=== PATIENT | female | born 1980 | race African-American/Black ===

== ENCOUNTER 2019-04-27 14:04 | Emergency (ER) | payer OTHER ==
--- NOTE | 2019-04-27 16:09 | ER Document Report ---
ED Medical Screen (RME) - General Chief Complaint: Abdominal Pain Stated Complaint: ABDOMINAL PAIN Time Seen by Provider: 04/27/19 16:02 Mode of Arrival: Medic Information source: Patient Notes: 39-year-old female presented to ED for complaint of right lower quadrant pain since yesterday with nausea. She came to the emergency via EMS. They states that she had intermittent blood in her stool they gave her 4 mg of Zofran and 50 mcg of fentanyl in the while in route. Patient is having right lower quadrant/right pelvic pain since yesterday. She states she has had some nausea but no vomiting. She has no pain or discomfort with urination. She has had a laparoscopy. She states she does have a history of pretension and hyperthyroid but is quit taking the medications for both. 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 Patient states she has had some blood in her stools for couple weeks but does not have any liquid stools. Patient is alert oriented respirations regular and unlabored speaking in full sentences walks with a even steady gait. I have greeted and performed a rapid initial assessment of this patient. A comprehensive ED assessment and evaluation of the patient, analysis of test results and completion of medical decision making process will be conducted by an additional ED providers. Dictation of this chart was performed using voice recognition software; therefore, there may be some unintended grammatical errors. - Related Data Allergies/Adverse Reactions: No Known Allergies Allergy (Verified 04/27/19 16:00) Physical Exam - Vital signs Vitals: Temp Pulse Resp BP Pulse Ox 98.1 F 103 H 20 165/106 H 99 04/27/19 14:08 04/27/19 14:08 04/27/19 14:08 04/27/19 14:08 04/27/19 14:08 Course - Vital Signs Vital signs: Temp Pulse Resp BP Pulse Ox 98.1 F 103 H 20 165/106 H 99 04/27/19 14:08 04/27/19 14:08 04/27/19 14:08 04/27/19 14:08 04/27/19 14:08
[2019-04-27 16:42] LABS: ABSOLUTE EOSINOPHILS # (AUTO) 0.1 10^3/uL (0.0-0.6); ABSOLUTE LYMPHOCYTES (AUTO) 1.9 10^3/uL (0.5-4.7); ABSOLUTE MONOCYTES (AUTO) 0.4 10^3/uL (0.1-1.4); ABSOLUTE NEUT (AUTO) 3.8 10^3/uL (1.7-8.2); BASOPHILS % (AUTO) 0.4 % (0-2); HEMATOCRIT 40.3 % (36.0-47.0); HEMOGLOBIN 13.5 g/dL (12.0-15.5); LYMPHOCYTES % (AUTO) 30.1 % (13-45); MEAN CORPUSCULAR HEMOGLOBIN 28.2 pg (27.0-33.4); MEAN CORPUSCULAR HGB CONC 33.4 g/dL (32.0-36.0); MEAN CORPUSCULAR VOLUME 84 fl (80-97); MONOCYTES % (AUTO) 6.7 % (3-13); PLATELET COUNT 235 10^3/uL (150-450); RED BLOOD COUNT 4.78 10^6/uL (3.72-5.28); RED CELL DISTRIBUTION WIDTH 13.2 % (11.5-14.0); SEGMENTED NEUTROPHILS % (AUTO) 60.8 % (42-78); TOTAL CELLS COUNTED % (AUTO) 100 %; WHITE BLOOD COUNT 6.3 10^3/uL (4.0-10.5)
[2019-04-27 17:06] LABS: ALANINE AMINOTRANSFERASE 20 U/L (9-52); ALBUMIN 4.1 g/dL (3.5-5.0); ALKALINE PHOSPHATASE 42 U/L (38-126); ANION GAP 8 (5-19); ASPARTATE AMINO TRANSFERASE 21 U/L (14-36); BILIRUBIN,DIRECT 0.2 mg/dL (0.0-0.4); BILIRUBIN,TOTAL 0.3 mg/dL (0.2-1.3); BLOOD UREA NITROGEN 12 mg/dL (7-20); CALCIUM 9.1 mg/dL (8.4-10.2); CARBON DIOXIDE 26 mmol/L (22-30); CHLORIDE 105 mmol/L (98-107); GLUCOSE 97 mg/dL (75-110); POTASSIUM 3.7 mmol/L (3.6-5.0); TOTAL PROTEIN 7.3 g/dL (6.3-8.2)
[2019-04-27 17:07] LABS: APPEARANCE,URINE CLEAR; BILIRUBIN,URINE NEGATIVE (NEGATIVE); COLOR,URINE YELLOW; GLUCOSE, URINE NEGATIVE (NEGATIVE); KETONES,URINE NEGATIVE (NEGATIVE); LEUKOCYTE ESTERASE,URINE NEGATIVE (NEGATIVE); NITRITE,URINE NEGATIVE (NEGATIVE); PROTEIN,URINE 30 mg/dL (NEGATIVE); URINE SPECIFIC GRAVITY 1.021
--- NOTE | 2019-04-27 17:20 | RADIOLOGY REPORT (SQ) ---
EXAM DESCRIPTION: U/S NON-OB PELVIS TV W/O DOP COMPLETED DATE/TIME: 04/27/2019 4:56 pm REASON FOR STUDY: Right lower quadrant abdominal/pelvic pain COMPARISON: None. TECHNIQUE: Dynamic and static grayscale images acquired of the pelvis via transvaginal approach and recorded on PACS. Additional selected color Doppler and spectral images recorded. LIMITATIONS: None. FINDINGS: UTERUS: Contour normal. No mass. ENDOMETRIAL STRIPE: No focal or generalized thickening. No masses. CERVIX: No nabothian cysts. RIGHT OVARY AND DOPPLER: Normal size. No worrisome masses. Normal arterial vascular flow without evid ence for torsion. LEFT OVARY AND DOPPLER: Normal size. No worrisome masses. Normal arterial vascular flow without evide nce for torsion. FREE FLUID: None noted. OTHER: No other significant finding. MEASUREMENTS: UTERUS: 7.8 cm ENDOMETRIAL STRIPE: 2.1 mm RIGHT OVARY: 2.4 cm LEFT OVARY: 2.2 cm IMPRESSION: NORMAL TRANSVAGINAL PELVIC ULTRASOUND. TECHNICAL DOCUMENTATION: JOB ID: [id number] [employer]- All Rights Reserved Rev-02/17 Reading location - IP/workstation name: [email or web address]
--- NOTE | 2019-04-27 17:21 | RADIOLOGY REPORT (SQ) ---
EXAM DESCRIPTION: U/S ABDOMEN LIMITED W/O DOP COMPLETED DATE/TIME: 04/27/2019 5:00 pm REASON FOR STUDY: Right lower quadrant abdominal/pelvic pain COMPARISON: None. TECHNIQUE: Static and real time salas scale imaging performed of the right lower quadrant with additi onal compression maneuvers. LIMITATIONS: None. FINDINGS: APPENDIX: Not visualized. BOWEL: Active peristalsis with fluid in the bowel. COMPRESSION MANEUVERS: No rebound pain. There was tenderness with compression. OTHER: No other significant finding. IMPRESSION: APPENDIX NOT IDENTIFIED. ACTIVE PERISTALSIS. Tenderness with compression. TECHNICAL DOCUMENTATION: JOB ID: [id number] [employer]- All Rights Reserved Reading location - IP/workstation name: [email or web address]
--- NOTE | 2019-04-27 18:20 | ER Document Report ---
ED General - General Mode of Arrival: Medic <SHERYL MARQUEZ - Last Filed: 04/27/19 19:49> <CATHYBARERICK - Last Filed: 04/27/19 21:17> - General Chief Complaint: Abdominal Pain Stated Complaint: ABDOMINAL PAIN Time Seen by Provider: 04/27/19 16:02 - HPI Notes: Patient is a 39-year-old female with a history of hypertension and hypothyroid who presents complaining of right lower quadrant abdominal pain that is been present since yesterday. Patient states that the pain is relatively constant and sharp. Patient states that the pain does not radiate. She has been able to eat and drink without difficulty. She is urinating normally and having normal bowel movements. Patient has not noticed any vaginal discharge, odor, or bleeding. Patient has no concern of STD or STI and does not want any testing for it as she is relation with her . Denies drug allergies. Patient states that she has been having red blood when she wipes as well as a little bit into the toilet which has been ongoing for the past couple months. Patient states that she is supposed to be seen gastroenterology for this. Patient states that this is not her concern today and she has not noticed any melena or black-colored stool. Denies any headache, fever, neck pain, URI, sore throat, chest pain, palpitations, syncope, cough, shortness of breath, wheeze, dyspnea, nausea/vomiting/diarrhea, urinary retention, dysuria, hematuria, back pain, loss of control of bowel or bladder, numbness/tingling, saddle anesthesia, muscle paralysis/weakness, or rash. (SHERYL MARQUEZ) - Related Data Allergies/Adverse Reactions: No Known Allergies Allergy (Verified 04/27/19 16:00) Past Medical History - General Information source: Patient - Social History Smoking Status: Never Smoker Chew tobacco use (# tins/day): Yes Frequency of alcohol use: Rare Family History: Reviewed & Not Pertinent Patient has suicidal ideation: No Patient has homicidal ideation: No - Past Medical History Cardiac Medical History: Reports: Hx Hypertension Renal/ Medical History: Denies: Hx Peritoneal Dialysis <SHERYL MARQUEZ - Last Filed: 04/27/19 19:49> Review of Systems - Review of Systems -: Yes All other systems reviewed and negative <SHERYL MARQUEZ - Last Filed: 04/27/19 19:49> Physical Exam <SHERYL MARQUEZ - Last Filed: 04/27/19 19:49> - Vital signs Vitals: Temp Pulse Resp BP Pulse Ox 98.1 F 103 H 20 165/106 H 99 04/27/19 14:08 04/27/19 14:08 04/27/19 14:08 04/27/19 14:08 04/27/19 14:08 - Notes Notes: PHYSICAL EXAMINATION: GENERAL: Well-appearing, well-nourished and in no acute distress. HEAD: Atraumatic, normocephalic. EYES: Pupils equal round and reactive to light, extraocular movements intact, sclera anicteric, conjunctiva are normal. ENT: Nares patent and without discharge. oropharynx clear without exudates. No tonsilar hypertrophy or erythema. Moist mucous membranes. NECK: Normal range of motion, supple without lymphadenopathy LUNGS: Breath sounds clear to auscultation bilaterally and equal. No wheezes rales or rhonchi. HEART: Regular rate and rhythm without murmurs, rubs, gallops. ABDOMEN: Soft, nondistended abdomen. No guarding, no rebound. Normal bowel sounds present. No CVA tenderness bilaterally. + tenderness RLQ to palp. No obvious inguinal adenopathy or hernia. /Rectal: Reviewed with patient and she declined; risk/benefit understood. Musculoskeletal: FROM to passive/active. Strength 5+/5. Extremities: No cyanosis, clubbing, or edema b/l. Peripheral pulses 2+. Capillary refill less than 3 seconds. NEUROLOGICAL: Cranial nerves grossly intact. Normal speech, normal gait. PSYCH: Normal mood, normal affect. SKIN: Warm, Dry, normal turgor, no rashes or lesions noted. (SHERYL MARQUEZ) Course - Laboratory Result Diagrams: 04/27/19 16:00 04/27/19 16:00 <SHERYL MARQUEZ - Last Filed: 04/27/19 19:49> - Laboratory Result Diagrams: 04/27/19 16:00 04/27/19 16:00 <ERICK GONZALEZ - Last Filed: 04/27/19 21:17> - Re-evaluation Re-evalutation: 04/27/19 18:22 Did reveal risk and benefit of a exam as well as a rectal exam for further evaluation which she has declined at this time. We are currently awaiting CT scan. Current labs and ultrasound results unremarkable. Vitals are acceptable. 04/27/19 20:05 Pt care transferred to Erick RICH (SHERYL MARQUEZ) 04/27/19 21:[address] of the abdomen and pelvis shows no acute findings. On reviewing the images there appears to be a lot of retained stool in the right side of the colon. I discussed with patient, she states that she has had this problem once in the past but she forgot about it. This also explains her intermittent small amount of bright red blood in the stool. Patient states she was already referred to gastroenterology but she has not made it to there yet. We discussed different options. I do have a low suspicion of acute abdomen based on her evaluation and work-up. Patient will be discharged after dose of lactulose here, given mag citrate, stool softeners, nausea medication, Bentyl, and she will follow-up with GI. I discussed return precautions with patient and significant other in detail. They state understanding and agreement with plan. (ERICK GONZALEZ) - Vital Signs Vital signs: Temp Pulse Resp BP Pulse Ox 98.7 F 88 18 182/107 H 100 04/27/19 18:35 04/27/19 18:35 04/27/19 18:35 04/27/19 18:35 04/27/19 18:35 - Laboratory Laboratory results interpreted by me: 04/27/19 16:00 Urine Protein 30 H Urine Blood MODERATE H Urine Urobilinogen 4.0 H Discharge <SHERYL MARQUEZ - Last Filed: 04/27/19 19:49> <ERICK GONZALEZ - Last Filed: 04/27/19 21:17> - Discharge Clinical Impression: Abdominal pain Qualifiers: Abdominal location: lower abdomen, unspecified Qualified Code(s): R10.30 - Lower abdominal pain, unspecified Condition: Stable Disposition: HOME, SELF-CARE Additional Instructions: Your appendix appears normal, your work-up is reassuring, this appears to be pain and distention of the bowel. There appears to be retained stool on the right side of the abdomen. You have been given lactulose here tonight, if you do not have results after several hours I recommend that you drink 1/4 to 1/2 of the magnesium citrate, then if after several hours you still do not have bowel movement results drink another 1/4 to half. You may need to take the colace stool softener for the next 2-4 days as well as prescribed. Take bentyl for cramping, Phenergan for nausea. Improve your diet - increased vegetables, fruits, fiber, and fluids are very helpful to clear your bowels. Because of your ongoing symptoms I do recommend that you follow-up with gastroenterology for additional evaluation and management. Return if you worsen including vomiting, severe worsening pain, fever, or any other concerning or worsening symptoms. Prescriptions: Dicyclomine HCl [Bentyl 20 mg Tablet] 20 mg PO QID PRN #20 tablet PRN Reason: Docusate Sodium [Colace 100 mg Capsule] 100 mg PO ASDIR PRN #30 capsule PRN Reason: Promethazine HCl [Phenergan 25 mg Tablet] 25 mg PO Q6H PRN #20 tablet PRN Reason: Forms: Return to Work
[2019-04-27] MEDS ORDERED: MORPHINE SULFATE 10 MG/ML INJ IV ONE (18:22)
[2019-04-27] MEDS ORDERED: KETOROLAC TROMETHAMINE INJ/PF 30 MG/1 ML SDV IV ONE (18:23)
--- NOTE | 2019-04-27 20:59 | RADIOLOGY REPORT (SQ) ---
EXAM DESCRIPTION: CT ABDOMEN PELVIS WITH IV CONTRAST COMPLETED DATE/TME: 04/27/2019 00:00 CLINICAL HISTORY: 39 years Female abd pain COMPARISON: None. TECHNIQUE: Contiguous axial images obtained through the abdomen and pelvis following IV contrast. Reformatted images obtained. This exam was performed according to our department optimization program which includes automated exposure control, adjustment of the mA and/or kv according to patient size and/or use of iterative reconstruction technique. FINDINGS: The liver appears unremarkable. The spleen and pancreas appear unremarkable. No adrenal masses. The kidneys appear unremarkable. No hydronephrosis. The gallbladder is visualized. No aneurysmal dilatation of the aorta. No bowel obstruction. The appendix is unremarkable. No significant free fluid noted. IMPRESSION: No acute abnormality is identified.
[2019-04-27] MEDS ORDERED: PROMETHAZINE HCL 25 MG TABLET PO ONE (21:09)
[2019-04-27] MEDS ORDERED: LACTULOSE SYRUP 20 GM/30 ML UDCUP PO ONE (21:09)
[2019-04-27] MEDS ORDERED: MAGNESIUM CITRATE 296 ML BOTTLE PO ONE (21:10)
[2019-04-27 22:39] VITALS: BP 147/93
== END 2019-04-27 22:38 | disposition home or self-care (01) ==
LOC: ER 14:04
DX: R10.30 Lower abdominal pain, unspecified (principal); R19.5 Other fecal abnormalities; R11.0 Nausea; R10.2 Pelvic and perineal pain
CPT/HCPCS: 99284; 96374; 96375; 36415; 84703; 85025; 80053; 81001; 76705; 76830; 74177; J3490; J1885; J2270